=== PATIENT | female | born 2000 | race African-American/Black ===

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

== ENCOUNTER 2021-01-13 17:18 | Emergency (ER) | payer SELFPAY ==
[2021-01-13] MEDS ORDERED: Sulfameth/Trimethoprim DS 800-160mg TAB ONE (18:06)
[2021-01-13] MEDS ORDERED: Sodium Chloride 0.9% 1,000 ML ONE (18:12)
[2021-01-13 19:10] LABS: #Basophils 0.1 thou/uL (0.0-0.2); #Lymphocytes 2.6 thou/uL (1.20-3.40); #Monocytes 0.9 thou/uL (0.11-0.59); #Neutrophils 10.9 thou/uL (1.40-6.50); %Basophils 0.6 % (0.0-1.0); %Eosinophils 0.1 % (0.0-10.0); %Lymphocytes 18.1 % (21.0-51.0); %Neutrophils 75.2 % (42.0-75.0); Hemoglobin 12.9 g/dL (12.0-16.0); Mean Corpuscular HGB CONC 32.1 g/dL (32.0-36.0); Mean Corpuscular Hemoglobin 30.1 pg (27.0-31.0); Mean Corpuscular Volume 93.8 fL (78.0-98.0); Mean Platelet Volume 8.7 fL (7.4-10.4); Platelet Count 219 thou/uL (130-400); RBC Distribution Width 11.8 % (11.5-14.5); Red Blood Cell (RBC) Count 4.27 mill/uL (4.20-5.40); White Blood Cell (WBC) Count 14.5 thou/uL (4.8-10.8)
[2021-01-13 19:24] LABS: ALT (SGPT) 12 U/L (8-55); AST (SGOT) 12 U/L (5-34); Albumin 4.4 g/dL (3.5-5.0); Alkaline Phosphatase 62 U/L (40-110); Anion Gap 17 mmol/L (10-20); BUN (Urea Nitrogen) 11 mg/dL (7.0-18.7); Bilirubin, Total 0.4 mg/dL (0.2-1.2); Calc. Creatinine Clearance 0 mL/min (70-130); Calcium 9.2 mg/dL (7.8-10.44); Carbon Dioxide 22 mmol/L (22-29); Chloride 103 mmol/L (98-107); Globulin 3.4 g/dL (2.4-3.5); Glucose 93 mg/dL (70-105); Potassium 3.5 mmol/L (3.5-5.1); Protein, Total 7.8 g/dL (6.0-8.3); Sodium 138 mmol/L (136-145)
[2021-01-13] MEDS ORDERED: Ibuprofen 200 MG TAB ONE (19:32)
== END 2021-01-13 20:16 | disposition home or self-care (01) ==
LOC: MADERS 17:18
DX: L02.31 Cutaneous abscess of buttock (principal)
CPT/HCPCS: 36415; 80053; 83605; 85025; 87040; 99283; J7050

== ENCOUNTER 2021-02-06 19:36 | Emergency (ER) | payer OTHER, SELFPAY ==
[2021-02-06] MEDS ORDERED: Lidocaine 1% 20 ML MDV ONE (20:37)
[2021-02-06] MEDS ORDERED: Boostrix 0.5 ML (Tdap) VIAL ONE (20:57)
== END 2021-02-06 21:17 | disposition home or self-care (01) ==
LOC: MADERS 19:36
DX: S61.211A Laceration without foreign body of left index finger without damage to nail, initial encounter (principal); W26.0XXA Contact with knife, initial encounter
CPT/HCPCS: 12002; 90471; 90715

== ENCOUNTER 2021-02-16 14:35 | Emergency (ER) | payer OTHER | END 2021-02-16 15:32 | disposition home or self-care (01) | LOC: MADERS 14:35 | DX: S61.211D Laceration without foreign body of left index finger without damage to nail, subsequent encounter (principal); X58.XXXD Exposure to other specified factors, subsequent encounter ==

== ENCOUNTER 2021-03-11 16:06 | Emergency (ER) | payer OTHER | END 2021-03-11 17:00 | disposition home or self-care (01) | LOC: MADERS 16:06 | DX: Z03.89 Encounter for observation for other suspected diseases and conditions ruled out (principal) | CPT/HCPCS: 99281 ==

== ENCOUNTER 2021-04-13 10:24 | Emergency (ER) | payer OTHER ==
[2021-04-13 21:37] LABS: SARS-CoV-2 PCR by NAA Not Detected (NotDetected)
== END 2021-04-13 11:03 | disposition home or self-care (01) ==
LOC: MADERS 10:24
DX: J06.9 Acute upper respiratory infection, unspecified (principal); Z20.822 Contact with and (suspected) exposure to COVID-19
CPT/HCPCS: 99283; U0003; U0005

== ENCOUNTER 2021-04-18 19:48 | Emergency (ER) | payer OTHER ==
[2021-04-18] MEDS ORDERED: Clindamycin 150 MG CAP ONE ×2 (20:05→20:10)
== END 2021-04-18 20:31 | disposition home or self-care (01) ==
LOC: MADERS 19:48
DX: O99.711 Diseases of the skin and subcutaneous tissue complicating pregnancy, first trimester (principal); L73.9 Follicular disorder, unspecified; Z3A.09 9 weeks gestation of pregnancy
CPT/HCPCS: 99282